=== PATIENT | female | born 1990 | race American Indian/Alaskan Native ===

== ENCOUNTER 2017-03-04 23:48 | Outpatient (CLI) | payer MEDICAID ==
[~2017-03-04 23:48] MED LIST: BRETHINE SUB-Q SCH; LACTATED RINGERS 1,000 ML IV SCH
[2017-03-04] MEDS ORDERED: LACTATED RINGERS 500 ML IV ONE (23:49)
[2017-03-05 00:04] VITALS: BP 113/66
[2017-03-05 01:10] LABS: Bilirubin,Urine NEG (Negative); Blood,Urine NEG (Negative); Ketones,Urine TR mg/dL (Negative); Leukocyte Esterase,Urine MOD (Negative); Mucus,Urine FEW /HPF; Nitrite,Urine NEG (Negative); Protein,Urine <15 mg/dL mg/dL (Negative); Urobilinogen,Urine < 2.0 mg/dL (<2.0)
== END 2017-03-05 01:20 | disposition home or self-care (01) ==
LOC: TRG 23:48
PROVIDERS: ATTEND Obstetrics & Gynecology
DX: O47.03 False labor before 37 completed weeks of gestation, third trimester (principal); Z3A.34 34 weeks gestation of pregnancy
CPT/HCPCS: 59025; 81001

== ENCOUNTER 2017-04-18 06:05 | Inpatient (IN) | payer MEDICAID ==
[2017-04-18] MEDS ORDERED: LACTATED RINGERS 1,000 ML ONE (07:22)
[2017-04-18] MEDS ORDERED: POLYCILLIN/NS 2 GM/100 ML 2 GM/100 ML BAG IV ONE ×2 (07:22→07:30)
[2017-04-18] MEDS ORDERED: SUBLIMAZE IV PRN (07:30)
[2017-04-18] MEDS: LACTATED RINGERS 1,000 ML IV SCH ×2 (07:39→10:15)
[2017-04-18 08:22] LABS: Hematocrit 39.3 % (30.3-42.9); Hemoglobin 13.3 gm/dl (10.1-14.3); Mean Corpuscular HGB Conc 34 % (30-34); Mean Corpuscular Hemoglobin 31 pg (28-32); Mean Corpuscular Volume 93 fl (79-97); Platelet Count 259 K/mm3 (140-440); Red Blood Count 4.24 M/mm3 (3.65-5.03); Red Cell Distribution Width 13.7 % (13.2-15.2); White Blood Count 8.5 K/mm3 (4.5-11.0)
--- NOTE | 2017-04-18 08:38 | History and Physical Report ---
History of Present Illness Date of examination: 04/18/17 Date of admission: 04/18/17 07:02 History of present illness: 26 yo LMP EDC 04/14/17 @ 40.4 weeks gestation presented in active labor. Voiced contractions started at 0400 this am. First trimester entry into care at 10 weeks gestation. course uncomplicated. She is GBS negative. Past History Past Medical History: no pertinent history Past Surgical History: no surgical history Family/Genetic History: none Social history: no significant social history, single - Obstetrical History Expected Date of Delivery: 04/14/17 Actual Gestation: 40 Week(s) 4 Day(s) : 2 Para: 0 Spontaneous Abortions: 1 Medications and Allergies Allergies Allergy/AdvReac Type Severity Reaction Status Date / Time No Known Allergies Allergy Verified 03/04/17 23:48 Active Meds: Active Medications Fentanyl (Sublimaze) 100 mcg IV Q2H PRN PRN Reason: Labor Pain Lactated Ringer's (Lactated Ringers) 1,000 mls @ 125 mls/hr IV DIRECT BETINA Last Admin: 04/18/17 07:39 Dose: 125 mls/hr Review of Systems All systems: negative Genitourinary: normal appearance, contractions, no vaginal bleeding, no leakage of fluid, no genital sores - Vital Signs Vital signs: Vital Signs Pulse BP 85 107/53 04/18/17 06:22 04/18/17 06:22 Temp Pulse Resp BP Pulse Ox 98.7 F 72 18 127/74 100 04/18/17 07:12 04/18/17 08:29 04/18/17 07:12 04/18/17 07:12 04/18/17 08:29 - Physical Exam Breasts: Positive: deferred Lungs: Positive: Normal air movement Abdomen: Positive: normal appearance Vagina: Positive: normal moisture Uterus: Positive: normal size - Obstetrical FHR: category 1 Uterine Contraction Monitor Mode: External Cervical Dilatation: 6 Cervical Effacement Percentage: 80 station: -2 Uterine Contraction Frequency (min): 1-2 Uterine Contraction Duration: 40-60 Uterine Contraction Pattern: Irregular Uterine Tone Measurement Phase: Resting Uterine Contraction Intensity: Moderate Results Result Diagrams: 04/18/17 07:50 All other labs normal. Assessment and Plan IUP at term active labor P: Active griselda't EFW 61/2lbs
[2017-04-18] MEDS ORDERED: ePHEDrine SULFATE IV PRN ×2 (09:45→10:30)
--- NOTE | 2017-04-18 09:45 | Anesthesia Consultation ---
Anesthesia Consult and Med Hx Date of service: 04/18/17 - Airway Anesthetic Teeth Evaluation: Good ROM Head & Neck: Adequate Mental/Hyoid Distance: Adequate Mallampati Class: Class II Intubation Access Assessment: Probably Good - Pulmonary Exam CTA: Yes - Cardiac Exam Cardiac Exam: RRR - Pre-Operative Health Status ASA Pre-Surgery Classification: ASA3 Proposed Anesthetic Plan: Epidural, Spinal - Pulmonary Hx Asthma: No COPD: No Hx Pneumonia: No - Cardiovascular System Hx Hypertension: No - Central Nervous System Hx Seizures: No Hx Psychiatric Problems: No - Endocrine Hx Renal Disease: No Hx End Stage Renal Disease: No Hx Hypothyroidism: No Hx Hyperthyroidism: No - Hematic Hx Anemia: No Hx Sickle Cell Disease: No - Other Systems Hx Alcohol Use: No Hx Obesity: Yes (morbid, BMI 40)
[2017-04-18] MEDS ORDERED: fentaNYL-BUPIV 2 MCG/ML-0.125% 200 MCG/100 ML BAG EPIDURAL SCH (10:00)
[2017-04-18] MEDS ORDERED: BRETHINE SUB-Q PRN (10:30)
[2017-04-18] MEDS ORDERED: NARCAN 0.4 MG/1 ML IV PRN (10:30)
[2017-04-18] MEDS ORDERED: ZOFRAN IV PRN ×2 (10:30→17:28)
[2017-04-18] MEDS ORDERED: STADOL IV PRN (10:30)
[2017-04-18] MEDS ORDERED: NARCAN 2 MG/2 ML IV PRN (10:30)
[2017-04-18] MEDS ORDERED: BRETHINE IVP PRN (10:30)
[2017-04-18] MEDS: PITOCin/NS 30 UNIT/500ML 30 UNITS/500 ML BAG IV SCH ×5 (10:57→14:06)
[2017-04-18] MEDS ORDERED: MINERAL OIL PO PRN (11:00)
[2017-04-18] MEDS ORDERED: LACTATED RINGERS 1,000 ML IV SCH (11:00)
[2017-04-18] MEDS ORDERED: XYLOCAINE 2% INFILTRATI ONE (11:00)
[2017-04-18] MEDS ORDERED: PITOCin/NS 20 UNIT/1000ML DRIP 20 UNITS/1,000 ML BAG IV SCH (11:00)
--- NOTE | 2017-04-18 12:40 | Event Note ---
Date: 04/18/17 Called by RN reported category 2 tracing @ BS. [address] IUPC/FSE placed. Late decels and variables decelerations note , tachysystole ctx pattern. Pitocin @ 12mu-off. IV bolus started. SVE 8/C/-2. Moved to left side. Will attempted intrauterine resuscitation, if unsuccessful plan primary C/S. Pt aware.
[2017-04-18] MEDS ORDERED: TYLENOL PO ONE (16:35)
[2017-04-18] MEDS ORDERED: DULCOLAX PR PRN (17:28)
[2017-04-18] MEDS ORDERED: TUCKS PAD TP PRN (17:28)
[2017-04-18] MEDS ORDERED: MILK OF MAGNESIA PO PRN (17:28)
[2017-04-18] MEDS ORDERED: BENADRYL PO PRN (17:28)
[2017-04-18] MEDS ORDERED: LANSINOH TP PRN (17:28)
[2017-04-18] MEDS ORDERED: PHENERGAN PR PRN (17:28)
[2017-04-18] MEDS ORDERED: TYLENOL PO PRN (17:28)
[2017-04-18] MEDS ORDERED: PHENERGAN PO PRN (17:28)
--- NOTE | 2017-04-18 17:28 | Procedure Note ---
OB Delivery Note - Delivery Date of Delivery: 04/18/17 (6.1oz male @ 1647) Surgeon: RAY MARLOW Estimated blood loss: 200cc - Vaginal Delivery presentation: vertex Delivery position: OA Intrapartum events: mult.variable deceleratio Delivery induction: oxytocin Delivery augmentation: rupture of membranes, pitocin Delivery monitor: external FHT, external uterine, internal FHT, internal uterine Route of delivery: Delivery placenta: spontaneous Delivery cord: 3 umbilical vessels Episiotomy: none Delivery laceration: vaginal side wall (bleeding. one stitch on 3.[address] for hemostatis) Delivery repair: vicryl Anesthesia: epidural - Infant A at 1 minute: 8 at 5 minutes: 9 Infant Gender: Male (complete, passive descent allowed. Pushed for viable male infant,. NICU at delivery for varible decls. Spont. lusty cry. Bulb suctioned and placed skin to skin. spont. Placenta, Pitocin infusing, bleeding small but continious trickle. Right sidewall laceration repaired, bleeding ceased. EBL 200cc)
[2017-04-18] MEDS ORDERED: SODIUM CHLORIDE FLUSH SYRINGE 10 ML IV SCH (18:00)
[2017-04-18] MEDS: NORCO 5/325 PO PRN (20:27)
[2017-04-19] MEDS: MOTRIN PO SCH ×4 (00:10→18:06)
[2017-04-19] MEDS ORDERED: BOOSTRIX IM ONE (06:00)
[2017-04-19] MEDS: NORCO 5/325 PO PRN (06:11)
[2017-04-19 06:13] LABS: Hemoglobin 11.4 gm/dl (10.1-14.3)
--- NOTE | 2017-04-19 13:00 | Progress Note ---
Assessment and Plan PPD#1 s/p doing well bottle feeding bleeding decreased undecided cotnrol rh+ no rhogam indicated GBS neg criteria for discharge after 24 hrs tonigh d/c home tonight with f/u in 4 weeks Subjective - Subjective Date of service: 04/19/17 Principal diagnosis: s/p Patient reports: appetite normal, voiding normally, pain well controlled, flatus , bowel movement, ambulating normally [place]: doing well Objective - Vital Signs Latest vital signs: Vital Signs Temp Pulse Pulse Resp BP BP Pulse Ox 04/19/17 04:00 98.9 F 80 20 127/72 04/19/17 00:15 99.0 F 78 18 123/80 04/18/17 20:30 99.5 F 71 18 119/65 04/18/17 18:54 16 04/18/17 18:44 87 99 04/18/17 18:39 85 98 04/18/17 18:34 85 99 04/18/17 18:33 95 H 123/65 04/18/17 18:29 81 99 04/18/17 18:24 85 98 04/18/17 18:19 88 99 04/18/17 18:18 86 133/63 04/18/17 18:14 81 99 04/18/17 18:09 83 100 04/18/17 18:04 86 99 04/18/17 18:02 86 130/61 04/18/17 17:59 96 H 100 04/18/17 17:54 93 H 99 04/18/17 17:49 87 99 04/18/17 17:48 90 130/59 04/18/17 17:44 84 99 04/18/17 17:39 98 H 99 04/18/17 17:34 87 99 04/18/17 17:33 100 H 136/69 04/18/17 17:30 95 H 125/60 04/18/17 17:29 94 H 100 04/18/17 17:24 98 H 99 04/18/17 17:19 94 H 85 04/18/17 17:03 100 H 130/66 04/18/17 17:01 110 H 94 04/18/17 17:00 111 H 98 04/18/17 16:59 117 H 139/67 04/18/17 16:55 119 H 71 L 04/18/17 16:50 98 H 92 04/18/17 16:49 63 79 L 04/18/17 16:45 94 H 100 04/18/17 16:40 92 H 99 04/18/17 16:37 67 84 04/18/17 16:35 119 H 98 04/18/17 16:30 88 98 04/18/17 16:29 92 H 137/74 04/18/17 16:28 71 72 L 04/18/17 16:25 99.9 F H 89 86 18 140/85 99 04/18/17 16:22 63 85 04/18/17 16:20 88 99 04/18/17 16:15 92 H 99 04/18/17 16:14 108 H 83 L 04/18/17 16:10 103 H 99 04/18/17 16:05 102 H 100 04/18/17 16:00 109 H 140/85 99 04/18/17 15:55 93 H 99 04/18/17 15:50 97 H 99 04/18/17 15:45 103 H 99 04/18/17 15:40 97 H 99 04/18/17 15:35 97 H 100 04/18/17 15:31 101 H 159/72 04/18/17 15:30 97 H 100 04/18/17 15:25 102 H 100 04/18/17 15:20 93 H 100 04/18/17 15:15 109 H 100 04/18/17 15:10 97 H 99 04/18/17 15:05 85 99 04/18/17 15:01 84 134/61 04/18/17 15:00 101 H 100 04/18/17 14:55 105 H 100 04/18/17 14:54 100 H 94 04/18/17 14:50 80 100 04/18/17 14:45 80 100 04/18/17 14:40 85 100 04/18/17 14:35 76 100 04/18/17 14:31 74 132/61 04/18/17 14:30 73 100 04/18/17 14:25 75 100 04/18/17 14:20 73 100 04/18/17 14:15 84 100 04/18/17 14:10 85 100 04/18/17 14:05 89 100 04/18/17 14:01 81 120/58 04/18/17 14:00 74 100 06/27/17 13:55 85 100 04/18/17 13:50 84 99 04/18/17 13:45 80 100 04/18/17 13:40 76 99 04/18/17 13:35 84 99 04/18/17 13:30 69 118/54 100 04/18/17 13:25 67 100 04/18/17 13:20 63 100 04/18/17 13:15 76 100 04/18/17 13:10 66 100 04/18/17 13:05 73 100 04/18/17 13:01 65 115/53 04/18/17 13:00 71 100 Intake and Output 04/18/17 04/19/17 04/19/17 22:59 06:59 14:59 Intake Total 500 Output Total 1400 Balance -1400 500 Intake: IV 500 PITOCin/NS 20 UNIT/1000ML 500 DRIP 20 units In 1,000 ml @ 125 mls/hr IV DIRECT BETINA Rx#:[id number] Output: Urine 1400 Indwelling Catheter 1400 Other: Total, Output Amount 1400 # Voids Void 1 Estimated Blood Loss 200 - Exam Breasts: Present: normal Cardiovascular: Present: Regular rate, Normal S1 Lungs: Present: Clear to auscultation, Normal air movement Abdomen: Present: normal appearance, soft, normal bowel sounds. Absent: distention, tenderness Vulva: both: normal Uterus: Present: normal, firm, fundal height below umbilicus (2cm below ). Absent: bogginess, tenderness Extremities: Present: normal Deep Tendon Reflex Grade: Normal +2
--- NOTE | 2017-04-19 13:01 | Discharge Summary ---
Providers - Providers Date of Admission: 04/18/17 07:02 Date of discharge: 04/19/17 Attending physician: JOANNE RANKIN Primary care physician: JOANNE RANKIN Hospitalization Reason for admission: active labor Delivery: Episiotomy: none Laceration: vaginal side wall Incision: normal, dry complications: none Discharge diagnosis: IUP at term delivered [place] baby: male Condition at discharge: Good Disposition: DC-01 TO HOME OR SELFCARE Plan - Discharge Medications Prescriptions: Ibuprofen [Motrin] 600 mg PO Q8H PRN #30 tablet PRN Reason: Pain oxyCODONE /ACETAMINOPHEN [Percocet 5/325] 1 tab PO Q6HR PRN #30 tablet PRN Reason: Pain - Provider Discharge Summary Activity: routine Diet: routine Instructions: routine Additional instructions: [] Smoking cessation referral if applicable(refer to patient education folder for contact #) [] Refer to [facility]'s [facility] [address] Booklet Call your doctor immediately for: * Fever > 100.5 * Heavy vaginal bleeding ( >1 pad per hour) * Severe persistent headache * Shortness of breath * Reddened, hot, painful area to leg or breast * Drainage or odor from incision. * Keep incision clean and dry at all times and follow doctor's instructions regarding bathing/showering - Follow up plan Follow up: JOANNE RANKIN MD [Primary Care Provider] - 05/10/17
[2017-04-20] MEDS: MOTRIN PO SCH ×2 (00:48→05:26)
[2017-04-20] MEDS: NORCO 5/325 PO PRN (00:52)
[2017-04-20 10:25] VITALS: BP 120/65
== END 2017-04-20 09:45 | disposition home or self-care (01) | DRG 775 ==
LOC: TRG 06:05 → LD 07:02 → OB 20:18
PROVIDERS: ADMIT Obstetrics & Gynecology; ATTEND Obstetrics & Gynecology
PROC: 3E0S3CZ (ICD-10-PCS; principal; 2017-04-18)
PROC: 00HU33Z Insertion of Infusion Device into Spinal Canal, Percutaneous Approach (ICD-10-PCS; principal; 2017-04-18)
PROC: 3E033VJ Introduction of Other Hormone into Peripheral Vein, Percutaneous Approach (ICD-10-PCS; principal; 2017-04-18)
PROC: 0UQGXZZ Repair Vagina, External Approach (ICD-10-PCS; principal; 2017-04-18)
PROC: 10E0XZZ Delivery of Products of Conception, External Approach (ICD-10-PCS; principal; 2017-04-18)
DX: O76 Abnormality in fetal heart rate and rhythm complicating labor and delivery (principal); Z3A.40 40 weeks gestation of pregnancy; Z37.0 Single live birth; O71.4 Obstetric high vaginal laceration alone; O99.214 Obesity complicating childbirth; Z68.41 Body mass index [BMI] 40.0-44.9, adult; E66.01 Morbid (severe) obesity due to excess calories
CPT/HCPCS: 36415; 85014; 85018; 85027; 86850; 86900; 86901; 90471; 90715; J0290; J2590; J3010; J7120